=== PATIENT | male | born 1965 | race Caucasian/White ===

== ENCOUNTER 2019-11-06 08:25 | Emergency (ER) | payer BC ==
[2019-11-06] MEDS ORDERED: ASPIRIN 81 MG CHEW TAB PO ONE (08:45)
[2019-11-06] MEDS ORDERED: SODIUM CHLORIDE 0.9% 1000ML 1,000 ML IV SCH (08:45)
--- NOTE | 2019-11-06 08:48 | Emergency Department Note ---
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 DENIES ANY MEDICAL HX. PT STATES HE DID GET A "STEROID SHOT" YESTERDAY. STAT EKG. MD IN TRIAGE EVALING PT. +SMOKER AND OCC DRINKER. PT AAOX4. AMBULATORY. STATES LEFT SHOULDER PAIN STARTED 10 MINS AFTER TACHYCARDIA ONSET. Historian: Patient Arrival Mode: Car Paramedic Required: No Onset (how long ago): hour(s) (1) Location: L arm Quality: Sharp Radiation: Reports non-radiation Severity: mild Onset quality: sudden Duration (how long): hour(s) Timing of current episode: constant Progression: unchanged Chronicity: new Context: Denies recent illness Relieving factors: none Exacerbating factors: none Associated symptoms: Reports denies other symptoms Treatments prior to arrival: none Past Medical/Family History Physician Review I have reviewed the patient's past medical and family history. Any updates have been documented here. Past Medical History Recent Fever: No Clinical Suspicion of Infectio: No New/Unexplained Change in Ment: No Past Medical History: None Past Surgical History: Appendectomy, Hip Replacement Other Surgery: 3 KNEE SCOPES FOOT SX RT HIP REPLACEMENT Social History Physically hurt or threatened: No Review of Systems Review of Systems Constitutional: Reports no symptoms EENTM: Reports no symptoms Cardiovascular: Reports no symptoms Respiratory: Reports no symptoms Gastrointestinal: Reports no symptoms Genitourinary: Reports no symptoms Musculoskeletal: Reports as per HPI, Reports other (L shoulder pain) Integumentary: Reports no symptoms Neurological: Reports no symptoms Psychological: Reports no symptoms Endocrine: Reports no symptoms Hematological/Lymphatic: Reports no symptoms Physical Exam Related Data Allergies: Coded Allergies: No Known Allergies (Unverified , 11/06/19) Triage Vital Signs Vital Signs Date Time Temp Pulse Resp B/P (MAP) Pulse Ox O2 Delivery O2 Flow Rate FiO2 11/06/19 08:25 98.0 116 16 151/102 98 Room Air Physical Exam CONSTITUTIONAL HENT EYES NECK PULMONARY CARDIOVASCULAR GASTROINTESTINAL GENITOURINARY SKIN MUSCULOSKELETAL NEUROLOGICAL PSYCHOLOGICAL Procedures 12 Lead ECG Interpretation ECG Interpretation : Paramedic: Interpreted by ED physician Date: Nov 06, 2019 Rhythm: sinus tachycardia Rate: tachycardia QRS axis: right ST segments normal: Yes T waves normal: Yes Clinical Impression: non-specific ECG Assessment & Plan Medical Decision Making MDM 54-year-old male with no reported past medical history presents the emergency department for tachycardia. This started 1 hour ago. Shortly after this onset of tachycardia he had some left shoulder discomfort. He denies other symptoms otherwise. Health. Vital signs show tachycardia to 120 but normal blood pressure. Tachycardia improved with fluids. Delta trop negative. D dimer Nl. Doubt emergent process at this time. I discussed results patient as well as expected disease time course and management. They will follow up with their primary care provider or return to the emergency department for new or worsening symptoms. Patient's appropriate for discharge. Part of this note was dictated with Delroy and is subject to recognition errors. Reassessment Reassessment time: 08:46 Reassessment No change, well appearing, NAD Assessment & Plan Final Impression: (1) Tachycardia Depart Disposition: HOME, SELF-CARE Last Vital Signs Date Time Temp Pulse Resp B/P (MAP) Pulse Ox O2 Delivery O2 Flow Rate FiO2 11/06/19 08:25 98.0 116 16 151/102 98 Room Air MARIA M REYES MD Nov 06, 2019 08:47
[2019-11-06 09:21] LABS: BASOPHILS % 0.1 % (0.0-1.0); HEMATOCRIT 48.2 % (38.2-49.6); HEMOGLOBIN 16.7 g/dL (14.0-18.0); LYMPHOCYTES # (AUTO) 0.9 (1.0-3.2); LYMPHOCYTES % 8.7 % (18.0-39.1); MEAN CORPUSCULAR HGB CONC 34.6 g/dL (31-35); MEAN CORPUSCULAR VOLUME 92.3 fL (81-99); MONOCYTES # (AUTO) 0.5 (0.2-0.8); MONOCYTES % 4.5 % (4.4-11.3); NEUTROPHILS # (AUTO) 8.8 (2.1-6.9); PLATELET COUNT 317 x10e3/uL (140-360); RED BLOOD COUNT 5.22 x10e6/uL (4.3-5.7); RED CELL DISTRIBUTION WIDTH 12.8 % (11.7-14.4)
--- NOTE | 2019-11-06 09:31 | Diagnostic Imaging Report ---
TECHNIQUE: Frontal view of the chest. INDICATION: ^Y ^CP ^[id number] ^0850 COMPARISON: None. DISCUSSION: Limited evaluation due to portable technique. Lines and hardware: None. Heart and mediastinum: Stable. Lungs and pleura: No focal airspace consolidation. No pleural effusion. No pneumothorax. Soft tissues and bones: No acute abnormality. IMPRESSION: Negative for acute intrathoracic process. Signed by: Miguel Luong MD on 11/06/2019 9:28 AM
[2019-11-06 09:37] LABS: ALANINE AMINOTRANSFERASE 26 IU/L (0-55); ALBUMIN 4.2 g/dL (3.5-5.0); ALBUMIN/GLOBULIN RATIO 1.3 (0.8-2.0); ALKALINE PHOSPHATASE 83 IU/L (40-150); ANION GAP 16.4 mmol/L (8-16); BLOOD UREA NITROGEN 13 mg/dL (7-26); BUN/CREATININE RATIO 13 (6-25); CALCIUM 9.8 mg/dL (8.4-10.2); CARBON DIOXIDE 19 mmol/L (22-29); CHLORIDE 109 mmol/L (98-107); CREATININE, SERUM 0.99 mg/dL (0.72-1.25); EST GLOMERULAR FILTRATION RATE > 60 ML/MIN (60-); GLUCOSE 132 mg/dL (74-118); POTASSIUM 4.4 mmol/L (3.5-5.1); SODIUM 140 mmol/L (136-145)
[2019-11-06 09:39] LABS: LIPASE 13 U/L (8-78)
[2019-11-06 09:58] LABS: THYROID STIMULATING HORMONE 0.783 uIU/mL (0.350-4.940)
--- OUTSIDE RECORDS SUMMARY | 2019-11-06 10:57 | XMS REPORT | Continuity of Care Document ---
Author Author [facility] Organization [facility] Address [address] [place] [address] Dr. Montemayor [address] [place] [phone] Phone Unavailable Care Team Providers Care Machine Preservative Filler Name Role Phone Praful Willard Attphys Unavailable Problems This patient has no known problems. Allergies, Adverse Reactions, Alerts This patient has no known allergies or adverse reactions. Medications This patient has no known medications. Procedures This patient has no known procedures. Results Test Description Test Time Test Comments Results Result Comments Source CHEST SINGLE (PORTABLE) 2019-11-06 09:25:00 [place] [address] Patient Name: MARSHA MALDONADO MR #: [id number] : 1965 Age/Sex: 54/M Req #: [id number] Adm Physician: Ordered by: Maria M Willard MD Report #: [id number] Location: ER Room/Bed: Procedure: [id number] DX/CHEST SINGLE (PORTABLE) Exam Date: 11/06/19 Exam Time: 0850 REPORT STATUS: Signed TECHNIQUE: Frontal view of the chest. INDICATION: Y CP [id number] COMPARISON: None. DISCUSSION: Limited evaluation due to portable technique. Lines and hardware: None. Heart and mediastinum: Stable. Lungs and pleura: No focal airspace consolidation. No pleural effusion. No pneumothorax. Soft tissues and bones: No acute abnormality. IMPRESSION: Negative for acute intrathoracic process. Signed by: Hilary Luong MD on 11/06/2019 9:28 AM Dictated By: HILARY LUONG MD 7 Transcribed By: TAYLOR on 11/06/19927 COPY TO: MARIA M WILLARD MD
[2019-11-06 12:21] VITALS: BP 144/99
== END 2019-11-06 12:47 | disposition home or self-care (01) ==
LOC: ER 08:42
DX: R00.0 Tachycardia, unspecified (principal); M25.512 Pain in left shoulder; Z96.641 Presence of right artificial hip joint; F17.210 Nicotine dependence, cigarettes, uncomplicated
CPT/HCPCS: 36415; 71045; 80053; 83690; 84443; 84484; 85025; 85379; 99284